=== PATIENT | male | born 1960 | race African-American/Black ===

== ENCOUNTER 2020-05-07 10:08 | Observation (INO) | payer OTHER ==
[~2020-05-07] VITALS: Ht 175.3 cm; Wt 112.4 kg
[2020-05-07] MEDS ORDERED: IV NORMAL SALINE 1,000ML 1,000 ML IV ONE (10:15)
--- NOTE | 2020-05-07 10:22 | RAD ---
EXAM: CT Head without IV contrast INDICATION: Reason: SLURRED SPEECH / Spl. Instructions: / History: TECHNIQUE: Multi-detector row CT images were obtained of the head without the use of IV contrast. All CT scans performed at this facility utilize dose optimization techniques as appropriate to the exam, including the following: Automated exposure control and adjustment of the mA and/or KV according to patient size (this includes techniques or standardized protocols for targeted exams where dose is ind ication/reason for exam). COMPARISON: None FINDINGS: BRAIN PARENCHYMA: No evidence of acute intraparenchymal hemorrhage or infarct. No abnormal parenchyma l density or mass. VENTRICLES & EXTRA-AXIAL SPACES: Ventricles are within normal limits. Basilar cisterns are patent. N o pathologic extra-axial fluid collection or mass. ORBITS: Orbital contents are unremarkable. SINUSES: Visualized paranasal sinuses and mastoid air cells are clear. OSSEOUS & SOFT TISSUES: Calvarium and skull base are intact. IMPRESSION: No acute intracranial pathology. FOR INTERNAL CODING PURPOSES Critical result: Findings discussed with Dr. Gilma Shah by telephone at 05/07/2020 10:19 AM. RESULT CODE: (C) Electronically signed by: Dov Ku MD (05/07/2020 10:19 AM) [id number]
[2020-05-07] MEDS ORDERED: IOHEXOL 350 MG/ML 100 ML VIAL. IV ONE (10:30)
[2020-05-07] MEDS ORDERED: IV NORMAL SALINE 1,000ML 1,000 ML IV SCH (10:30)
[2020-05-07 10:40] LABS: BASO % 1 % (0-3); EOS # 0.2 x10^3/uL (0.0-0.7); EOS % 5 % (0-3); HEMOGLOBIN 14.7 g/dL (13.0-17.5); LYMPH # 1.8 x10^3/uL (1.0-4.8); LYMPH % 38 % (24-48); MEAN CORPUSCULAR HEMOGLOBIN 30 pg (25-35); MEAN CORPUSCULAR HGB CONC 33 g/dL (31-37); MEAN CORPUSCULAR VOLUME 91 fL (79-100); MONO # 0.5 x10^3/uL (0.0-1.1); MONO % 11 % (0-9); NEUT # 2.2 x10^3uL (1.8-7.7); NEUT % 45 % (31-73); PLATELET COUNT 195 x10^3/uL (140-400); RED BLOOD COUNT 4.94 x10^6/uL (4.30-5.70); RED CELL DISTRIBUTION WIDTH 13.9 % (11.5-14.5); WHITE BLOOD COUNT 4.8 x10^3/uL (4.0-11.0)
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
[2020-05-07 10:47] LABS: CALCIUM 8.5 mg/dL (8.5-10.1); CREATININE 1.1 mg/dL (0.7-1.3); GFR 68.8; POTASSIUM 3.6 mmol/L (3.5-5.1)
[2020-05-07 11:01] LABS: ALBUMIN 3.5 g/dL (3.4-5.0); MAGNESIUM 2.1 mg/dL (1.8-2.4); TOTAL BILIRUBIN 0.6 mg/dL (0.2-1.0)
--- NOTE | 2020-05-07 11:08 | RAD ---
EXAM: CT Angiogram of the Head and Neck INDICATION: Reason: left weakness / Spl. Instructions: / History: TECHNIQUE: CT images were obtained through the head per standard CTA protocol. Multiplanar and 3D ref ormatted images were generated from the CT dataset on an independent workstation. All CT scans perfor med at this facility utilize dose optimization techniques as appropriate to the exam, including the f ollowing: Automated exposure control and adjustment of the mA and/or KV according to patient size (th is includes techniques or standardized protocols for targeted exams where dose is indication/reason f or exam). IV CONTRAST: Administered COMPARISON: None FINDINGS: CTA HEAD: No high-grade large vessel stenosis, proximal or branch vessel occlusion, aneurysm, or vascular malfo rmation. ANTERIOR CIRCULATION: Anterior and middle cerebral arteries are widely patent. ANTERIOR COMMUNICATING ARTERY: Patent. POSTERIOR COMMUNICATING ARTERIES: Present bilaterally and patent. POSTERIOR CIRCULATION: Vertebral and basilar arteries are widely patent. Bilateral superior cerebell ar arteries and posterior cerebral arteries are widely patent. The AICAs and PICAs are more diminutiv e but present bilaterally. OTHER: No abnormal brain parenchymal enhancement. The paranasal sinuses, mastoid air cells, and tymp anic cavities show mild mucosal thickening in the right maxillary antrum.. NECK CTA: AORTA: 2 vessel configuration of arch. No dissection or acute aortic injury. No hemodynamically sign ificant great vessel origin stenosis. RIGHT CAROTID: Common and internal carotid arteries are widely patent, without evidence of flow limi ting stenosis or dissection. LEFT CAROTID: Common and internal carotid arteries are widely patent, without evidence of flow limit ing stenosis or dissection. VERTEBRAL ARTERIES: Codominant. No evidence of dissection or flow limiting stenosis. SUBCLAVIAN ARTERIES:Subclavian arteries are patent without stenosis. SOFT TISSUES: Soft tissues are unremarkable. Lung apices are clear. C-spine degenerative spondylosis is present. Where applicable, evaluation of ICA stenosis was performed using NASCET criteria, where the site of g reatest stenosis is compared to the diameter of the ICA distal to the carotid bulb. IMPRESSION: Normal CTA of the head and neck. FOR INTERNAL CODING PURPOSES Critical result: Findings discussed with Dr. Gilma Shah by telephone at 05/07/2020 11:00 AM. RESULT CODE: (C) Electronically signed by: Dov Ku MD (05/07/2020 11:06 AM) [id number]
--- NOTE | 2020-05-07 11:21 | RAD ---
Exam performed: One view chest. Indication: Reason: stroke / Spl. Instructions: / History: Date of Service: 05/07/2020 10:41 AM Comparison: None available. Single AP upright portable view chest findings: Cardiomediastinal silhouette is within limits of normal. No acute infiltrates, effusion or pneumotho rax is detected. The bony structures are normal. Impression: No acute cardiopulmonary process is detected. Electronically signed by: Teressa Lynne MD (05/07/2020 11:19 AM) [id number]
--- NOTE | 2020-05-07 11:54 | EKG ---
[address] [address] Test Date: 2020-05-07 Test Time: 10:37:04 Pat Name: JESS JIMENEZ Department: Room: Gender: M Commercial Sales Specialist: NIKOLAS : 1960 Requested By: CESILIA BLAND Order Number: [id number] Reading MD: Measurements Intervals Rogers Rate: 67 P: 52 DE: 166 QRS: 40 QRSD: 88 T: 171 QT: 432 QTc: 460 Interpretive Statements SINUS RHYTHM T ABNORMALITY IN HIGH LATERAL LEADS INFERIOR LEADS ABNORMAL ECG RI6.02 No previous ECG available for comparison
[2020-05-07] MEDS ORDERED: ACETAMINOPHEN 325 MG TABLET PO PRN (12:00)
[2020-05-07] MEDS ORDERED: ONDANSETRON PF 4 MG/2 ML VIAL. IVP PRN (12:00)
[2020-05-07 12:12] LABS: BARBITURATES NEG (NEG); BENZODIAZEPINES POS (NEG); CANNABINOIDS NEG (NEG); COCAINE NEG (NEG); METHADONE NEG (NEG); OPIATES NEG (NEG); PHENCYCLIDINE NEG (NEG)
[2020-05-07 12:14] LABS: AMPHETAMINE/METHAMPHETAMINE NEG (NEG)
[2020-05-07] MEDS ORDERED: AMLO-187 PO (13:22)
[2020-05-07] MEDS ORDERED: LAMO150T4 PO (13:50)
[2020-05-07] MEDS ORDERED: METO25TA4 PO (13:50)
[2020-05-07] MEDS ORDERED: TAMS0.4C97 PO (13:50)
[2020-05-07] MEDS ORDERED: LAMO100T8 PO (13:50)
[2020-05-07] MEDS ORDERED: FINA5TAB4 PO (13:50)
[2020-05-07] MEDS ORDERED: METF500T16 PO (13:50)
[2020-05-07] MEDS ORDERED: ASPI-630 PO (13:50)
[2020-05-07] MEDS ORDERED: ATORVASTATIN CA80 MG PO (13:50)
[2020-05-07] MEDS ORDERED: NITR0.4T22 SL (13:50)
[2020-05-07] MEDS ORDERED: HYDR12.58 PO (13:50)
[2020-05-07] MEDS ORDERED: DOXA4TAB3 PO (13:50)
[2020-05-07] MEDS ORDERED: ALBU2.5V8 IH (13:50)
[2020-05-07 15:28] VITALS: BP 144/70
[2020-05-07] MEDS: traMADol 50 MG TABLET PO PRN (16:06)
[2020-05-07] MEDS ORDERED: ALBUTEROL SULFATE 2.5 MG/3 ML NEBU. IH PRN (18:15)
[2020-05-07 19:16] VITALS: BP 124/71
[2020-05-07 22:46] VITALS: BP 146/73
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
[2020-05-08] MEDS: traMADol 50 MG TABLET PO PRN ×2 (00:16→09:12)
[2020-05-08 06:02] VITALS: BP 100/56
[2020-05-08 06:27] LABS: BASO % 0 % (0-3); EOS # 0.3 x10^3/uL (0.0-0.7); EOS % 5 % (0-3); HEMOGLOBIN 14.2 g/dL (13.0-17.5); LYMPH # 2.8 x10^3/uL (1.0-4.8); LYMPH % 52 % (24-48); MEAN CORPUSCULAR HEMOGLOBIN 30 pg (25-35); MEAN CORPUSCULAR HGB CONC 33 g/dL (31-37); MEAN CORPUSCULAR VOLUME 91 fL (79-100); MONO # 0.6 x10^3/uL (0.0-1.1); MONO % 12 % (0-9); NEUT # 1.6 x10^3uL (1.8-7.7); NEUT % 30 % (31-73); PLATELET COUNT 173 x10^3/uL (140-400); RED BLOOD COUNT 4.71 x10^6/uL (4.30-5.70); RED CELL DISTRIBUTION WIDTH 13.9 % (11.5-14.5); WHITE BLOOD COUNT 5.4 x10^3/uL (4.0-11.0)
[2020-05-08 06:34] LABS: CALCIUM 8.1 mg/dL (8.5-10.1); CREATININE 1.1 mg/dL (0.7-1.3); GFR 83.2; POTASSIUM 3.8 mmol/L (3.5-5.1)
[2020-05-08] MEDS ORDERED: lamoTRIgine 100 MG TABLET. PO SCH ×2 (09:00→21:00)
--- NOTE | 2020-05-08 09:22 | PN ---
DATE: SUBJECTIVE: The patient stated he had brief seizure-like activities; however, talking to Melony, the nursing staff, she told me he had brief symptoms described as nausea and he stated he had stroke-like symptoms on the left side when he turned to the right and he vomited. He did not have any postictal confusion or disorientation. The patient stated it is over. According to the observer, the patient had nausea for 3 times last night. He also complains of pain all over the left face, arm and legs and chest wall as well, but this morning he denies any other new medical or neurological complaints. OBJECTIVE: GENERAL: Obese male, not in acute distress. VITAL SIGNS: Blood pressure 100/56, respiratory rate 16, pulse is 50, oxygen 94% on room air, and temperature is 98. HEENT: Normocephalic, atraumatic, otherwise unremarkable. NECK: Supple. Negative for carotid bruit, lymphadenopathy, or thyromegaly. LUNGS: Clear to A and P. CARDIOVASCULAR: Regular rate and rhythm, normal S1, S2. There is no S3, S4 or murmur. ABDOMEN: Soft. Bowel sounds positive. EXTREMITIES: Negative for cyanosis, clubbing or edema. NEUROLOGICAL EXAM: Mental Status: The patient is alert and oriented x 3. Speech is fluent. There is no language dysfunction. Memory, judgment and abstracting thinking are normal. The patient denies hallucination or delusion. Cranial nerves are intact. No focal motor or sensory deficit. Deep tendon reflexes were symmetric and hypoactive with absent Achilles responses. Gait not tested. EKG revealed sinus rhythm at 50. LABORATORY DATA: CBC revealed white blood cells of 5.4 thousand, hemoglobin 14.2, hematocrit 43, platelet count is 173. Urine drug screen is positive for benzodiazepine. IMPRESSION: 1. Longstanding history of seizure and possible breakthrough generalized tonic-clonic seizure, probably due to previous traumatic brain injury. 2. Multiple medical problems include coronary artery disease, hypertension, hyperlipidemia, diabetes mellitus, chronic obstructive pulmonary disease and sleep apnea. Lamictal level has been sent yesterday, but the result is not available at this time. RECOMMENDATIONS: 1. We will continue with Lamictal. The patient probably does not tolerate Keppra. 2. The patient should have a followup with neurologist or he can call my office and schedule for electroencephalogram. Otherwise, Lamictal dose should be adjusted based on the coming Lamictal level done yesterday. M Jey PATEL MD DR: EMELIA/angelica JOB#: [id number] / [id number]
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
== END 2020-05-08 12:30 ==
LOC: EEVIPCON 10:08 → ER 10:08 → 1 SOUTH 11:53
PROVIDERS: ADMIT Hospitalist; ATTEND Hospitalist
DX: G40.909 Epilepsy, unspecified, not intractable, without status epilepticus (principal); I10 Essential (primary) hypertension; E11.9 Type 2 diabetes mellitus without complications; E78.5 Hyperlipidemia, unspecified; I25.10 Atherosclerotic heart disease of native coronary artery without angina pectoris; J44.9 Chronic obstructive pulmonary disease, unspecified; G47.30 Sleep apnea, unspecified; R32 Unspecified urinary incontinence; N40.0 Benign prostatic hyperplasia without lower urinary tract symptoms; S06.9X9A Unspecified intracranial injury with loss of consciousness of unspecified duration, initial encounter; R07.89 Other chest pain; M62.81 Muscle weakness (generalized); K14.8 Other diseases of tongue; Z79.82 Long term (current) use of aspirin; Z79.84 Long term (current) use of oral hypoglycemic drugs; Z79.899 Other long term (current) drug therapy; Z86.73 Personal history of transient ischemic attack (TIA), and cerebral infarction without residual deficits; Z87.891 Personal history of nicotine dependence; Z95.5 Presence of coronary angioplasty implant and graft; W19.XXXA Unspecified fall, initial encounter; Y93.89 Activity, other specified; Y92.89 Other specified places as the place of occurrence of the external cause; Y99.8 Other external cause status
CPT/HCPCS: 36415; 70450; 70496; 70498; 71045; 80048; 80053; 80175; 80307; 82947; 83735; 83880; 84484; 85025; 85610; 85730; 93005; 94640; 96361; 96374; 96375; 99285; G0378; J1953; J2405; J7030; J7613; Q9967; G0379